=== PATIENT | female | born 1995 | race African-American/Black ===

== ENCOUNTER 2021-12-04 13:40 | Emergency (ER) | payer OTHER, SELFPAY ==
--- NOTE | ~2021-12-04 | CT_ITS ---
EXAMINATION: CT abdomen pelvis w con DATE: 12/04/2021 18:27 INDICATION: abd pain TECHNIQUE: Computed tomography (CT) of the abdomen and pelvis was performed without intravenous contr ast. Automated exposure control and iterative reconstruction technique were employed.. The dose-lengt h product was 236.23 mGy-cm. COMPARISON: 05/25/2016. FINDINGS: Lower thorax: Unremarkable. Liver: Hypodensity, too small to characterize but likely a cyst, otherwise normal. Biliary/Gallbladder: Gallbladder is normal. No bile duct dilation. Spleen: Normal. Pancreas: No mass or duct dilation. Adrenals:No mass. Kidneys: No mass, stone, or hydronephrosis. GI tract: No small or large bowel dilation. Appendix not confidently visualized. Mesentery/Peritoneum: No ascites, mass, or free air. Retroperitoneum: No mass. Pelvis: Pelvic organs are within normal limits. Small volume free pelvic fluid, within the physiologi c range. Bones/Soft Tissues: Soft tissues and body wall unremarkable. No acute osseous finding. Additional Findings: None. IMPRESSION: No acute abdominopelvic process. Appendix not confidently visualized. Reviewed, dictated and finalized at location K.
[2021-12-04 13:50] VITALS: BP 128/74; PULSE 78; RESP 16; TEMP 36.2; O2SAT 100
[2021-12-04 16:53] LABS: Appearance Urine Clear (Clear); Bilirubin Urine Negative (Negative); Blood Urine Trace-lysed (Negative); Color Urine Yellow (Yellow); Glucose Urine UA Negative (Negative); Ketones Urine Negative (Negative); Leukocyte Esterase Ur Negative LEU/UL (Negative); Nitrate Urine Negative (Negative); Protein Urine Negative (Negative); Specific Grav Ur >= 1.030 (1.001-1.035); Urobilinogen Urine 0.2 mg/dL (<2.0)
[2021-12-04 16:58] LABS: Bacteria Urine Trace /hpf; Mucus Urine Few /lpf; Squamous Epithelial Cell Urine Many /hpf (Few)
[2021-12-04 16:59] LABS: Add Urine Microscopic? YES
--- NOTE | 2021-12-04 17:07 | ED.ABDPAIN ---
HPI - Abdominal Pain General Chief Complaint: Abdominal Pain Stated Complaint: abd pain Time Seen by Provider: 12/04/21 16:21 Source: patient Mode of arrival: ambulatory Limitations: no limitations History of Present Illness HPI narrative: This is a 26-year-old female that presents to the emergency department for mid abdominal pain. Reports the pain is intermittent and sharp in nature. The pain worsened today which prompted her to be seen. Denies fever, vomiting, dysuria, hematuria, or diarrhea. Related Data Allergies Allergy/AdvReac Type Severity Reaction Status Date / Time No Known Allergies Allergy Unverified 09/05/17 14:52 Review of Systems Review of Systems: CONSTITUTIONAL: Denies fever GASTROINTESTINAL: Reports abdominal pain. Denies nausea, vomiting, or diarrhea. GENITOURINARY: Denies dysuria or hematuria. All systems reviewed & are unremarkable except as noted in HPI and below PMFSH Past Medical History Medical History (Updated 12/04/21 @ 18:52 by Indu Coley PA-C) No active medical problems Social History Social History (Updated 12/04/21 @ 17:09 by Indu Coley PA-C) Smoking status: Never smoker Exam Narrative: GENERAL: Well-appearing, well-nourished, and in no acute distress. HEAD: Normocephalic, atraumatic. EYES: EOMI. CHEST: Clear to auscultation. No respiratory distress. No wheezes rales or rhonchi HEART: Regular rate and rhythm. No murmur heard. Normal peripheral pulses. ABDOMEN: Soft, nondistended, normal active bowel sounds. Mild tenderness to palpation throughout the lower abdomen, without guarding EXTREMITIES: Normal range of motion. No edema. SKIN: Warm, dry, no rash. NEURO: No focal deficits. Alert and oriented x3. PSYCH: Normal mood and affect Course Vital Signs Vital signs: Vital Signs Temperature 97.1 F L 12/04/21 13:50 Pulse Rate 78 12/04/21 13:50 Respiratory Rate 16 12/04/21 13:50 Blood Pressure 128/74 12/04/21 13:50 Pulse Oximetry 100 12/04/21 13:50 Temperature 97.1 F L 12/04/21 13:50 Pulse Rate 78 12/04/21 13:50 Respiratory Rate 16 12/04/21 13:50 Blood Pressure 128/74 12/04/21 13:50 Pulse Oximetry 100 12/04/21 13:50 MDM - Abdominal Pain MDM Narrative Medical decision making narrative: Patient presents to the emergency department for intermittent abdominal pain ongoing over the last week. She is afebrile and nontoxic-appearing. Her vitals are stable. CBC is without leukocytosis. Does show normocytic anemia with hemoglobin 11.8. Metabolic panel and lipase without concerning findings. UA without evidence of infection. Bedside test is negative. CT scan of the abdomen and pelvis is without acute findings. Patient was updated on case findings. She is stable and felt appropriate for further outpatient evaluation. Instructed to follow-up with primary care doctor. She was given warnings to return to the ER Lab Data Attestation: I reviewed the patient's lab results. Result diagrams: 12/04/21 13:48 12/04/21 16:30 Labs: Lab Results 12/04/21 12/04/21 12/04/21 Range/Units 13:48 16:30 16:30 WBC 5.2 (4.5-10.0) K/mm3 RBC 3.89 L (4.2-5.4) M/mm3 Hgb 11.8 L (12.0-15.0) g/dL Hct 37.2 (37.0-47.0) % MCV 95.6 (80-100) fl MCH 30.3 (26-34) pg MCHC 31.7 L (32-36) g/dl RDW 12.4 (11.5-14.5) % Plt Count 276 (150-375) k/mm3 MPV 10.6 H (7.4-10.4) fl Immature Gran % (Auto) 0.2 (0-0.5) % Neut % (Auto) 37.5 L (45.5-73.1) % Lymph % (Auto) 48.8 H (18.3-44.2) % [place] % (Auto) 10.0 H (2.6-8.5) % Eos % (Auto) 3.1 (0-4.4) % Baso % (Auto) 0.4 (0.2-1.2) % Lymph # (Auto) 2.54 (0.9-3.2) K/mm3 [place] # (Auto) 0.5 (0.1-0.6) K/mm3 Eos # (Auto) 0.2 (0-0.3) K/mm3 Baso # (Auto) 0.0 (0.0-0.1) K/mm3 Abs Immat Gran (auto) 0.01 (0.00-0.031) K/mm3 Absolute Neuts (auto) 2.0 (1.3-6.7) K/mm3 Absolute Nucleated RBC 0.0
[2021-12-04 17:13] LABS: Basophils Percent Auto 0.4 % (0.2-1.2); Eosinophils Absolute Auto 0.2 K/mm3 (0-0.3); Eosinophils Percent Auto 3.1 % (0-4.4); Hematocrit 37.2 % (37.0-47.0); Hemoglobin 11.8 g/dL (12.0-15.0); Immature Granulocyte Absolute 0.01 K/mm3 (0.00-0.031); Immature Granulocyte Percent A 0.2 % (0-0.5); Lymphocytes Absolute Auto 2.54 K/mm3 (0.9-3.2); Lymphocytes Percent Auto 48.8 % (18.3-44.2); Mean Corpuscular HGB Conc 31.7 g/dl (32-36); Mean Corpuscular Hemoglobin 30.3 pg (26-34); Mean Corpuscular Volume 95.6 fl (80-100); Mean Platelet Volume 10.6 fl (7.4-10.4); Monocytes Absolute Auto 0.5 K/mm3 (0.1-0.6); Neutrophils Percent Auto 37.5 % (45.5-73.1); Platelet Count Result 276 k/mm3 (150-375); Red Blood Count 3.89 M/mm3 (4.2-5.4); Red Cell Distribution Width 12.4 % (11.5-14.5); White Blood Count 5.2 K/mm3 (4.5-10.0)
[2021-12-04] MEDS: FAMOTIDINE 20 MG/2 ML VIAL IV PUSH (17:25)
[2021-12-04 18:04] LABS: Alanine Aminotransferase 15 U/L (4-35); Albumin Level 4.4 g/dL (3.5-5.1); Alkaline Phosphatase 47 U/L (38-126); Anion Gap 9 mmol/L (8-16); Aspartate Amino Transferase 34 U/L (14-36); Bilirubin,Total 0.6 mg/dL (0.2-1.3); Blood Urea Nitrogen 10 mg/dL (7-17); Calcium 9.3 mg/dL (8.4-10.2); Carbon Dioxide 25 mmol/L (22-30); Chloride 103 mmol/L (98-107); Estimated CRCL calculation 89 ml/min; Estimated Glomerular Filt Rate > 60; Glucose 74 mg/dL (65-110); Lipase 84 U/L (23-300); Potassium 3.9 mmol/L (3.4-5.0); Sodium 137 mmol/L (137-145)
--- NOTE | 2021-12-04 18:15 | PC.NURSE ---
Pt to CT via w/c
--- NOTE | 2021-12-04 18:24 | PC.NURSE ---
Pt returned from CT
[2021-12-04 18:58] VITALS: PULSE 70; RESP 18; O2SAT 98
== END 2021-12-04 18:59 | disposition home or self-care (01) ==
PROVIDERS: Emergency Medicine; Emergency Provider General Practice
DX: R10.10 Upper abdominal pain, unspecified (principal); D64.9 Anemia, unspecified
CPT/HCPCS: 36415; 74177; 80053; 81001; 81025; 83690; 85025; 96365; 96375; 99284; J0131; Q9967